=== PATIENT | female | born 1955 | race Caucasian/White ===

== ENCOUNTER → 2019-03-26 | Outpatient (CLI) | payer BC ==
--- NOTE | 2019-03-26 08:36 | CTL ---
EXAMINATION TYPE: CT Low Dose Lung DATE OF EXAM ORDERED: 03/26/2019 HISTORY: Long-term tobacco use. Lung cancer screening CT DLP: [address] CTDI: 2.07 mGy Automated exposure control for dose reduction was used. SCREENING VISIT: Initial study COMPARISON: None. TECHNIQUE: Low dose computed tomography scan was performed through the chest at 1 mm thick sections a nd reconstructed images in the coronal plane at [address] DIAGNOSTIC QUALITY: Satisfactory FINDINGS: LUNG NODULES: None. LUNGS: COPD: Severity: Mild to moderate Fibrosis: Severity: None Lymph nodes: None Other findings: None BILATERAL PLEURAL SPACE: Effusion: Non- Calcification: None Thickening: None Pneumothorax: None HEART: Heart Size: Normal Coronary calcification: Minimal Pericardial effusion: None OTHER FINDINGS: Upper abdomen: No Bony thorax: [id number] multilevel spurring. Supraclavicular region: None Other: None IMPRESSION: Emphysematous change without suspicious nodules. FOLLOW UP CT CHEST RECOMMENDATION: Annual low-dose lung screening CT CT LUNG RAD: Lung-Rad 1 Negative
== END | disposition home or self-care (01) ==
LOC: RADCTMAIN 08:07
PROVIDERS: ATTEND Family Medicine
DX: J43.9 Emphysema, unspecified (principal); Z87.891 Personal history of nicotine dependence

== ENCOUNTER → 2020-07-18 | Outpatient (CLI) | payer MEDICARE ==
--- NOTE | 2020-07-18 12:06 | CTL ---
EXAMINATION TYPE: CT Low Dose Lung DATE OF EXAM ORDERED: 07/18/2020 HISTORY: . Lung cancer screening CT DLP: [address] CTDI: 2.07 mGy Automated exposure control for dose reduction was used. SCREENING VISIT: Subsequent follow-up COMPARISON: 03/26/2019 TECHNIQUE: Low dose computed tomography scan was performed through the chest at 1 mm thick sections a nd reconstructed images in the coronal plane at [address] DIAGNOSTIC QUALITY: Limited, but interpretable FINDINGS: LUNG NODULES: None. LUNGS: COPD: Severity: None Fibrosis: Severity: None Lymph nodes: None Other findings: None RIGHT PLEURAL SPACE: Effusion: None Calcification: None Thickening: None Pneumothorax: None LEFT PLEURAL SPACE: Effusion: None Calcification: None Thickening: None Pneumothorax: None HEART: Heart Size: Normal Coronary calcification: Minimal Pericardial effusion: None OTHER FINDINGS: Upper abdomen: Normal Bony thorax: Normal Supraclavicular region: Normal Other: Ascending thoracic aorta at the level the main pulmonary artery measures 3.1 cm. The main pul monary artery at the bifurcation measures 2.7 cm. IMPRESSION: No suspicious acute changes FOLLOW UP CT CHEST RECOMMENDATION: Low dose CT chest [address] LUNG RAD: 1
== END | disposition home or self-care (01) ==
LOC: RADCTMAIN 11:38
PROVIDERS: ATTEND Family Medicine
DX: Z12.2 Encounter for screening for malignant neoplasm of respiratory organs (principal); Z87.891 Personal history of nicotine dependence
CPT/HCPCS: 71271

== ENCOUNTER → 2021-07-20 | Outpatient (CLI) | payer MEDICARE ==
--- NOTE | 2021-07-22 08:10 | CTL ---
EXAMINATION TYPE: CT Low Dose Lung DATE OF EXAM ORDERED: 07/20/2021 HISTORY: Long-term tobacco use. Lung cancer screening CT DLP: 99.[address] CTDI: 2.7 mGy Automated exposure control for dose reduction was used. SCREENING VISIT: Second after baseline COMPARISON: Prior studies 2018 and 2020 TECHNIQUE: Low dose computed tomography scan was performed through the chest at 1 mm thick sections a nd reconstructed images in multiple planes at 1 mm and [address] DIAGNOSTIC QUALITY: Satisfactory FINDINGS: LUNG NODULES: Present, detailed below: Incidental 3 mm peripheral right upper lobe nodule axial image 43 was present on prior studies. No greater than 4 mm pulmonary nodules. LUNGS: COPD: Severity: Moderate Fibrosis: Severity: None Lymph nodes: None Other findings: None BILATERAL PLEURAL SPACE: Effusion: None Calcification: None Thickening: None Pneumothorax: None HEART: Heart Size: Mild cardiomegaly Coronary calcification: Minimal Pericardial effusion: None OTHER FINDINGS: Upper abdomen: None Bony thorax: [id number] multilevel spurring. Supraclavicular region: None Other: None IMPRESSION: Emphysematous change without significant greater than 5 mm pulmonary nodules. FOLLOW UP CT CHEST RECOMMENDATION: Annual low-dose lung screening CT CT LUNG RAD: Lung-Rad 2 Benign Appearance or Behavior
== END | disposition home or self-care (01) ==
LOC: RADCTMAIN 16:28
PROVIDERS: ATTEND Family Medicine
DX: Z12.2 Encounter for screening for malignant neoplasm of respiratory organs (principal); J43.9 Emphysema, unspecified; Z87.891 Personal history of nicotine dependence
CPT/HCPCS: 71271

== ENCOUNTER 2021-12-28 12:42 | Day surgery (SDC) | payer MEDICARE ==
[2021-12-26 10:01] VITALS: BMI 30.7
[~2021-12-28 12:42] MED LIST: ACETAMINOPHEN TAB 500 MG TAB PO PRN; DEXAMETHASONE SOD PHOSPHATE 4 MG/ML 1 ML VIAL IV ONE; HEPARIN SODIUM,PORCINE/PF 5,000 UNIT/0.5 ML SYRINGE SQ PRN; HYDROmorphone 0.5 MG/0.5 ML SYRINGE IVP PRN; LACTATED RINGERS 1,000 ML IV SCH; MIDAZOLAM 2 MG/2 ML VIAL IV PRN; ONDANSETRON 4 MG/2 ML VIAL IVP ONE; Pre Op ABX Message 1 EACH MISC MISCELLANE ONE
--- NOTE | 2021-12-28 13:22 | P.GSHP ---
History of Present Illness H&P Date: 12/28/21 Chief Complaint: Rectal bleeding, lipoma 66-year-old female here today for excision of a left posterior neck/shoulder lipoma and colonoscopy. Patient has had intermittent rectal bleeding. Please refer to recent history and physical from the office. Past Medical History Past Medical History: COPD Additional Past Medical History / Comment(s): lipoma on neck History of Any Multi-Drug Resistant Organisms: None Reported Past Surgical History: Section, Tonsillectomy Additional Past Surgical History / Comment(s): colonoscopy,vocal cord polyps removed,breast bx Past Anesthesia/Blood Transfusion Reactions: No Reported Reaction Smoking Status: Former smoker - Past Family History Mother Family Medical History: Cancer Additional Family Medical History / Comment(s): breast and pancreas Father Family Medical History: Cancer Additional Family Medical History / Comment(s): leukemia Medications and Allergies Home Medications Medication Instructions Recorded Confirmed Type Calcium Carbonate/Vitamin D3 1 each PO BID 12/26/21 12/26/21 History [Calcium 600-D3 20 mcg (800 Unit)] Cholecalciferol [Vitamin D3 (25 50 mcg PO DAILY 12/26/21 12/26/21 History Mcg = 1000 Iu)] Naproxen Sodium [Aleve] 220 mg PO DAILY 12/26/21 12/26/21 History Sertraline [Zoloft] 50 mg PO QAM 12/26/21 12/26/21 History Tiotropium 2.5 Mcg/Puff [Spiriva 2 puff INHALATION QAM 12/26/21 12/26/21 History Respimat 2.5 Mcg] Zinc 50 mg PO DAILY 12/26/21 12/26/21 History Allergies Allergy/AdvReac Type Severity Reaction Status Date / Time metronidazole [From Flagyl] Allergy Rash/Hives Verified 12/26/21 09:51 sulfamethoxazole Allergy Rash/Hives,"my Verified 12/26/21 09:51 [From Bactrim] vision went out" trimethoprim [From Bactrim] Allergy Rash/Hives,"my Verified 12/26/21 09:51 vision went out" Surgical - Exam Physical exam: General: Well-developed, well-nourished HEENT: Normocephalic, sclerae nonicteric, 4 x 3 cm left posterior neck lipomatous mass, mildly tender Abdomen: Nontender, nondistended Extremities: No edema Neuro: Alert and oriented Assessment and Plan (1) Lipoma of neck Narrative/Plan: CC 6-year-old female with neck lipoma and rectal bleeding. We'll proceed with lipoma excision and colonoscopy at this time. Current Visit: Yes Status: Acute Code(s): D17.0 - TEOFILO LIPOMATOUS NEOPLM OF SKIN, SUBCU OF HEAD, FACE AND NECK SNOMED Code(s): 97664389
[2021-12-28] MEDS ORDERED: PHENYLEPHRINE-0.9% NACL SYG 1,000 MCG/10 ML SYRINGE ONE (15:23)
[2021-12-28] MEDS ORDERED: fentaNYL (PF) 50 MCG/ML 2 ML AMP ONE (15:23)
[2021-12-28] MEDS ORDERED: SUCCINYLCHOLINE CHLORIDE 100 MG/5 ML SYR IV ONE (15:23)
[2021-12-28] MEDS ORDERED: LIDOCAINE 2% INJ 20 MG/ML (2 ML VIAL) ONE (15:23)
[2021-12-28] MEDS ORDERED: PROPOFOL 10 MG/ML 20 ML VIAL IV ONE (15:23)
[2021-12-28] MEDS ORDERED: MIDAZOLAM 2 MG/2 ML VIAL ONE (15:23)
[2021-12-28] MEDS ORDERED: SODIUM CHLORIDE 0.9% 50 ML with ceFAZolin 2,000 MG IV ONE ×2 (15:28)
[2021-12-28] MEDS ORDERED: BUPIVACAIN-EPI 0.25%-1:200,000 30 ML VIAL SQ ONE (15:52)
[2021-12-28] MEDS ORDERED: LACTATED RINGERS 1,000 ML IV ONE (16:20)
--- NOTE | 2021-12-28 16:36 | P.OP ---
Date of Procedure: 12/28/21 Procedure(s) Performed: PREOPERATIVE DIAGNOSIS: Left posterior neck lipoma, rectal bleeding POSTOPERATIVE DIAGNOSIS: Same PROCEDURE: Excision left posterior neck lipoma, intermediate closure, colonoscopy SURGEON: Martin EBL: Hari Scott ANESTHESIA: Gen. COMPLICATIONS: None OPERATIVE PROCEDURE: Patient placed on the operative table. She was then placed under general anesthesia and placed in right decubitus position. The left posterior neck was prepped and draped sterilely. Marcaine solution was used. A horizontal incision was made. The subcutaneous tissues were divided using electrocautery. The lipomatous mass was removed using a combination of blunt dissection and cautery. This measured 6 x 4 x 2 cm. This was sent to pathology. Subcutaneous tissues were closed using interrupted 3-0 Vicryl sutures. The skin was closed using a running 4-0 Monocryl suture. Skin glue and sterile dressings were applied. Length of an intermediate closure 4 cm. The patient was then placed in the left decubitus position. The Olympus colonoscope was inserted into the anus and passed under direct visualization to the base of the cecum. The appendiceal orifice was visualized. From that point the scope was slowly withdrawn inspecting all surfaces carefully. There were no neoplastic inflammatory or polypoid lesions throughout the cecum, ascending, transverse, descending, sigmoid and rectum. There was mild left-sided diverticulosis noted. Digital rectal examination was normal. The patient was taken to the recovery room in stable condition per anesthesia guidelines. RECOMMENDATIONS: Resume diet. Follow-up one week. Repeat colonoscopy 10 years.
[2021-12-28 16:41] VITALS: TEMP 96.8
[2021-12-28 17:41] VITALS: PULSE 86
[2021-12-28 18:22] VITALS: RESP 18
[2021-12-28 18:23] VITALS: BP 144/81
== END 2021-12-28 18:15 | disposition home or self-care (01) ==
LOC: OR 12:42
PROVIDERS: ATTEND Surgery
DX: D17.0 Benign lipomatous neoplasm of skin and subcutaneous tissue of head, face and neck (principal); K62.5 Hemorrhage of anus and rectum; K57.30 Diverticulosis of large intestine without perforation or abscess without bleeding; G43.909 Migraine, unspecified, not intractable, without status migrainosus; Z98.891 History of uterine scar from previous surgery; Z98.890 Other specified postprocedural states; Z80.0 Family history of malignant neoplasm of digestive organs; Z80.3 Family history of malignant neoplasm of breast; Z80.6 Family history of leukemia; J44.9 Chronic obstructive pulmonary disease, unspecified; Z79.1 Long term (current) use of non-steroidal anti-inflammatories (NSAID); Z79.899 Other long term (current) drug therapy; Z88.1 Allergy status to other antibiotic agents; Z88.2 Allergy status to sulfonamides
CPT/HCPCS: 21552; 88304; 45378; J2250; J1100; J2405; J0690; J3010; J2370; J0330; J2704; J2001; 45380

== ENCOUNTER → 2022-11-22 | Outpatient (CLI) | payer MEDICARE ==
--- NOTE | 2022-11-22 14:18 | CTL ---
EXAMINATION TYPE: CT Low Dose Lung DATE OF EXAM ORDERED: 11/22/2022 HISTORY: . Lung cancer screening CT DLP: 49.[address] CTDI: 1.5 mGy Automated exposure control for dose reduction was used. COMPARISON: 07/20/2021 TECHNIQUE: Low dose computed tomography scan was performed through the chest at 1 mm thick sections a nd reconstructed images in multiple planes at 1 mm and [address] DIAGNOSTIC QUALITY: Satisfactory There are mild emphysematous changes. There is no airspace consolidation/density and no abnormal interstitial density. There are no suspicious lung masses or nodules. There is no pleural effusion, pleural thickening or pneumothorax. The great vessels chest are normal is no mediastinal, hilar or axillary adenopathy. Limited scanning the upper abdomen reveals no gross abnormality. The osseous structures are intact without focal osseous abnormality. The 3 mm nodule identified in t he right upper lobe on the prior study is not identified on the current study.. IMPRESSION: 1. No acute cardiopulmonary disease. 2. Mild emphysematous changes. 3. No suspicious lung masses or nodules. Lung RADS category 1 negative. Continue routine screening ye andres intervals.
== END | disposition home or self-care (01) ==
LOC: RADCTMAIN 13:35
PROVIDERS: ATTEND Family Medicine
DX: Z12.2 Encounter for screening for malignant neoplasm of respiratory organs (principal); J43.9 Emphysema, unspecified
CPT/HCPCS: 71271

== ENCOUNTER → 2024-01-15 | Outpatient (CLI) | payer MEDICARE ==
--- NOTE | 2024-01-15 12:46 | CTL ---
EXAMINATION TYPE: CT Low Dose Lung DATE OF EXAM ORDERED: 01/15/2024 HISTORY: 68-year-old female Z12.2 ENCNTR SCREEN FO, F17.210 NICOTINE DEPENDENCE. Lung cancer screenin g. Former smoker with 35 pack-year history. CT DLP: [address] CTDI: 1.84 mGy Automated exposure control for dose reduction was used. SCREENING VISIT: Annual follow-up COMPARISON: 11/22/2022 TECHNIQUE: Low dose computed tomography scan was performed through the chest at 1 mm thick sections a nd reconstructed images in multiple planes at 1 mm and [address] DIAGNOSTIC QUALITY: Satisfactory FINDINGS: The heart is normal size without pericardial effusion. Mild LAD and RCA coronary calcifications are p resent. Aorta normal caliber with conventional arch vessel branching anatomy. Nonenlarged mediastinal lymph nodes. No thoracic lymph adenopathy by CT size criteria. Mild diffuse bronchial wall thickening. Mild emphysematous change. Mild biapical pleural-parenchymal scarring. No consolidation or pleural effusion. A 4 mm subpleural pulmonary nodule posterior right lower lobe, axilla 221 not clearly seen previously . No other suspicious pulmonary nodules are seen. Visualized upper abdomen shows some low density in the region of the pancreatic head and liv hepati s probably partial volume averaging artifact on the last slice of the exam. Bones: Mild degenerative disc disease lower thoracic spine. IMPRESSION: 1. LungRADS Category 3 (probably benign, 1-2% chance of malignancy); a new 4 mm subpleural pulmonary nodule right lower lobe can be reassessed at a 6 month follow-up. 2. COPD with mild emphysema. CT LUNG RAD AND CT CHEST RECOMMENDATION: Lung-Rad 3 Probably Benign: 6 month follow-up LDCT. S Modifier (other clinically significant findings): None
== END | disposition home or self-care (01) ==
LOC: RADCTMAIN 12:12
PROVIDERS: ATTEND Family Medicine
DX: Z12.2 Encounter for screening for malignant neoplasm of respiratory organs (principal); R91.1 Solitary pulmonary nodule; J43.9 Emphysema, unspecified; Z87.891 Personal history of nicotine dependence
CPT/HCPCS: 71271